=== PATIENT | female | born 1945 | race Caucasian/White ===

== ENCOUNTER 2018-03-18 08:15 | Outpatient (CLI) | payer MEDICARE ==
[2018-03-18] MEDS ORDERED: Iopamidol 370 76% 100 ML VIAL ONE (09:00)
--- NOTE | 2018-03-18 12:21 | CT ---
CT ANGIOGRAM CHEST: HISTORY: Hypoxia. Shortness of breath. Coronary artery disease. COMPARISON: None. TECHNIQUE: A CT angiogram of the chest is performed in the axial plane. Three-dimensional reformatted images ar e submitted for interpretation. FINDINGS: There is a nonspecific, nonenlarged precarinal lymph node, measuring 1.4 x 0.8 cm. No mediastinal ma ss or hematoma. Heart size is normal. No pericardial effusion. There are coronary artery calcifica tions. The thoracic and upper abdominal aorta have a normal caliber. There is no periaortic fat str anding. There is an incompletely evaluated hypodensity along the posterior segment of the right hepatic lobe, measuring 1.8 x 2.4 cm. The remaining visualized upper abdominal solid organs are unremarkable. A small hiatal hernia is suspected. The trachea and central bronchi are patent. Emphysematous changes in the upper lobes. Scar/atelecta sis in both lower lobes, lingula, and middle lobe. There is a pleural-based nodule in the posteromed ial right lower lobe, measuring 0.6 x 0.5 cm. Adequate contrast opacification of the pulmonary arterial system, to the level of the segmental arter ies. No filling defect to suggest thromboembolism. IMPRESSION: 1. No evidence of pulmonary artery embolism to the level of the segmental arteries. 2. Pleural-based nodule in the right lower lobe. Follow-up CT in 6 to 12 months is recommended, dep ending on the patient's risk factors. CODE T POS: [facility]
== END 2018-03-18 08:16 | disposition home or self-care (01) ==
LOC: NAV CT 08:15
PROVIDERS: ATTEND Family Medicine
DX: I25.10 Atherosclerotic heart disease of native coronary artery without angina pectoris (principal); R06.02 Shortness of breath; R09.02 Hypoxemia; R91.1 Solitary pulmonary nodule
CPT/HCPCS: 36415; 71275; 82565